=== PATIENT | female | born 1990 | race African-American/Black ===

== ENCOUNTER 2016-08-23 16:10 | Emergency (ER) | payer OTHER ==
[~2016-08-23] VITALS: Ht 162.6 cm; Wt 49.5 kg
[~2016-08-23 16:10] MED LIST: AMOX875 PO; CEPALOZ SUCK-ON; MEDR4PAK3 PO
[2016-08-23 16:15] VITALS: BP 104/72; PULSE 95; RESP 16; TEMP 98.7; O2SAT 100
[2016-08-23] MEDS ORDERED: NAPR500 PO (16:32)
--- NOTE | 2016-08-23 16:32 | PD ---
HPI Chief Complaint: ENT Complaint Time Seen by Provider: 16:26 Travel History International Travel<30 days: No Contact w/Intl Traveler<30days: No Traveled to known affect area: No History of Present Illness HPI 26-year-old woman with sore throat cough also voice and feeling bad for a couple days. No significant cough. No fevers or chills. No other complaints. History Past Medical History Medical History: Denies Significant Hx LMP: 08/13/2016 : 2 Para: 2 Social History Alcohol Use: No Tobacco Use: No Allergies-Medications (Allergen,Severity, Reaction): Coded Allergies: No Known Allergies (Verified , 08/23/16) Reported Meds & Prescriptions Reported Meds & Active Scripts Active No Active Prescriptions or Reported Medications Review of Systems Except as stated in HPI: all other systems reviewed are Neg Physical Exam Narrative Gen.: Well-appearing 26-year-old woman HEENT: TMs normal. Large tonsils but no erythema inflammation or tonsillar exudates. Neck: Minimal tender cervical adenopathy. Trachea is midline. No meningismus Lungs are clear Heart regular, well perfused. Abdomen soft nontender. Data Data Last Documented VS Vital Signs Date Time Temp Pulse Resp B/P Pulse Ox O2 Delivery O2 Flow Rate FiO2 08/23/16 16:15 98.7 95 16 104/72 100 MDM Medical Decision Making Medical Screen Exam Complete: Yes Emergency Medical Condition: Yes Differential Diagnosis Laryngitis, URI, pharyngitis, other Narrative Course Medical decision making 26-year-old with laryngitis, looks well. Recommend supportive treatment and NSAIDs. Diagnosis Primary Impression: Laryngitis Additional Instructions: Take Naprosyn as needed for throat pain. Drink plenty of fluids to stay well-hydrated. Return to the emergency department for any new or worsening symptoms. Med/Other Pt SpecificInfo: Prescription(s) given Scripts Naproxen (Naprosyn)500 Mg [id number] Mg PO BID PRN (PAIN SCALE 1 TO 10) #20 TAB Prov:De Ro MD 08/23/16 Disposition: 01 DISCHARGE HOME Condition: Stable De Ro MD Aug 23, 2016 16:32
[2016-08-23] MEDS ORDERED: NAPROXEN 500 MG TAB PO ONE (16:45)
== END 2016-08-23 17:32 | disposition home or self-care (01) ==
LOC: PHEFT 16:10
DX: J04.0 Acute laryngitis (principal)
CPT/HCPCS: 99283

== ENCOUNTER 2017-08-02 09:24 | Emergency (ER) | payer OTHER ==
[~2017-08-02] VITALS: Ht 162.6 cm; Wt 50.0 kg
[~2017-08-02 09:24] MED LIST changes: -AMOX875 PO; -CEPALOZ SUCK-ON; -MEDR4PAK3 PO; +NAPR500 PO
[2017-08-02 09:25] VITALS: BP 129/75; PULSE 82; RESP 16; TEMP 97.8; O2SAT 98
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
== END 2017-08-02 10:31 | disposition home or self-care (01) ==
LOC: NEPK 09:24
DX: S20.212A Contusion of left front wall of thorax, initial encounter (principal); S29.012A Strain of muscle and tendon of back wall of thorax, initial encounter; V47.5XXA Car driver injured in collision with fixed or stationary object in traffic accident, initial encounter
CPT/HCPCS: 99283